=== PATIENT | male | born 1945 | race Caucasian/White ===

== ENCOUNTER 2017-07-19 23:28 | Observation (INO) ==
[2017-07-20] MEDS ORDERED: Naloxone 0.4 MG/ML INJ IVP PRN (01:35)
[2017-07-20] MEDS ORDERED: Ipratropium/Albuterol Neb 3 ML IH PRN (01:41)
--- NOTE | 2017-07-20 01:48 | Internal Med History&Physical ---
<Elke Figueroa H - Last Filed: 07/20/17 02:01> Date of Encounter: 07/20/17 Time of Encounter: 01:42 Internal Medicine - H&P: HPI Chief complaint: Shortness of breath/cough Admitted From: Emergency Dept Plans for Post Hospital Care: Home History of present illness: Mr. Ann is a 72 year old male with past medical history of CAD S/P4 stents, hypertension, and hyperlipidemia who presented to [place] [facility] earlier tonight after being sent there from urgent care. Per patient, he developed shortness of air and cough earlier this morning. He reports having some subjective chills and fever, an achy chest pain associated with cough, a productive cough with white sputum , and shortness of breath that is worsened with exertion. He initially went to urgent care at which time he was transferred to [place] [facility]. In [place] ED, patient was given a DuoNeb, after which his heart rate accelerated to the 140s. A repeat EKG demonstrated an irregularly irregular rhythm with no P waves indicative of atrial fibrillation. The patient was subsequently transferred to [facility] on 07/20/2017 for treatment of new onset atrial fibrillation and COPD exacerbation. During examination, patient states his shortness of breath has improved since transfer from [place]. His heart rate has improved, and he is no longer reporting chest pain. Patient denies any diaphoresis, nausea, vomiting, or lower extremity swelling,. He denies any abdominal pain, diarrhea, melena, or hematochezia. He denies orthopnea or past medical history of obstructive sleep apnea. He does however report intermittent chest palpitations over the past fews. He states he is not seeing a cardiovascular sonographer. He reports a previous myocardial infarctions and subsequent cardiac intervention resulting in 4 stents being placed. He denies any recent sick contacts or travel. Past Med Surg Social Fam HX - Past Medical History Attestation: Yes The following information was validated with the patient. Source: patient, old records reviewed Medical history: COPD, coronary artery disease, hyperlipidemia, hypertension, myocardial infarction Psychiatric history: no psych history - Past Surgical History Surgical History: angioplasty/stent - Social History Smoking Status: Current every day smoker Smokeless Tobacco Status: No Alcohol use: none Drug use: none Internal Medicine - H&P: Meds Aspirin [Ecotrin] 325 mg PO DAILY 07/19/17 [History] Atorvastatin [Lipitor] 40 mg PO HS 07/19/17 [History] Metoprolol Tartrate [Lopressor] 25 mg PO DAILY 07/19/17 [History] Tizanidine HCl [Zanaflex] 4 mg PO TID 07/19/17 [History] Tramadol HCl [Ultram] 50 mg PO BID PRN 07/19/17 [History] 3 Allergy/AdvReac Type Severity Reaction Status Date / Time Penicillins Allergy Anaphylaxis Verified 07/19/17 22:05 All Systems PM: A 10-system review of systems was performed and is negative for pertinent findings except as documented above in the HPI. - Constitutional Constitutional: chills, fever(s), no lethargy, no night sweats, no weakness - EENT Eyes: no change in vision, no loss of vision Nose, mouth and throat: nasal discharge, no facial pain, no nasal congestion, no sinus pain, no sinus pressure - Cardiovascular Cardiovascular ROS IM: chest pain, dyspnea, dyspnea on exertion, irregular heart rhythm, palpitations, no claudication, no diaphoresis, no edema, no lightheadedness, no orthopnea, no paroxysmal nocturnal dyspnea, no syncope - Respiratory Respiratory: cough, dyspnea, dyspnea on exertion, pain on inspiration, chest congestion, excessive phlegm production, pain with cough, no wheezing, no snoring - Gastrointestinal Gastrointestinal: no change in stool character, no coffee ground emesis, no diarrhea, no hematemesis, no loose stools, no melena, no nausea, no vomiting - Genitourinary Genitourinary ROS male: no difficulty urinating, no hematuria, no urinary incontinence, no urinary urgency - Integumentary Integumentary IM: no erythema, no skin ulcer - Neurological Neurological ROS: no abnormal movements, no abnormal speech, no focal weakness, no headache(s) - Endocrine Endocrine IM: no cold intolerance, no heat intolerance - Constitutional Vitals: Temp Pulse Resp BP Pulse Ox 98.3 F 80 18 90/65 96 07/20/17 00:48 07/20/17 00:48 07/20/17 00:48 07/20/17 00:48 07/20/17 00:48 General appearance: Present: cooperative, A&O X 3, no acute distress, answers questions appropriately - Head Head exam: Present: atraumatic, normocephalic Additional comments: adentulous - Eye Eye exam: Present: PERRL, conjuntiva pink, sclera anicteric Pupils: Present: PERRL - Neck Neck exam general surgery: Present: supple, trachea midline. Absent: lymphadenopathy - Respiratory Respiratory exam: Present: decreased breath sounds. Absent: accessory muscle use, rales, rhonchi, wheezes - Cardiovascular Cardiovascular exam: Present: RRR, +S1, +S2. Absent: diastolic murmur, gallop, rubs, systolic murmur - GI/Abdominal GI/Abdominal exam: Present: normal bowel sounds, soft, no peritoneal signs. Absent: distended, firm, guarding, tenderness - Extremities Exam Extremities exam: Present: warm, radial pulses palpable and symmetrical. Absent : calf tenderness, cyanotic, pedal edema - Neurological Exam Neurological exam: Present: CN II-XII intact, oriented X3, no focal deficits. Absent: pronater drift, facial droop, speech deficit - Skin Skin exam: Present: dry, intact - Assessment and plan (1) Atrial fibrillation with RVR Current Visit: No Status: Acute Assessment and plan: 72-year-old male with past medical history of CAD and HI presents with new onset atrial fibrillation with RVR. -Most recent echo in 2014 demonstrates LVEF 50-55%. -We will get echocardiogram in a.m. -TSH, magnesium, phosphorus. -Heart rate has normalized and blood pressure is borderline and 90/60. Will discontinue Cardizem drip. -Will increase home metoprolol dose of Lopressor 25 mg once daily to 25 mg twice a day. -CHADS- Vasc score of 2. -Will start on therapeutic lovenox BID. (2) COPD exacerbation Current Visit: No Status: Acute Assessment and plan: Patient received a dose of IV Solu-Medrol and his appetite ED prior to transfer. -We will get a respiratory infectious panel. -Continue duo nebs PRN. -We will provide antibiotic coverage with Levaquin. -PO prednisone. (3) CAD (coronary artery disease) Current Visit: Yes Status: Acute Assessment and plan: Will get updated echocardiogram in the morning. -Continue home medications. -Increase BB dose from 25mg QD to BID. Qualifiers: Coronary Disease-Associated Artery/Lesion type: [place] artery [place] vs. transplanted heart: [place] heart Associated angina: without angina Qualified Code(s): I25.10 - Atherosclerotic heart disease of [place] coronary artery without angina pectoris (4) DVT prophylaxis Current Visit: Yes Status: Acute Assessment and plan: Patient receiving 1 dose of therapeutic lovenox now. -EPCDS (5) Tobacco abuse Current Visit: Yes Status: Acute Assessment and plan: Patient declining nicotine replacement therapy. - Time Spent With Patient Total time spent is greater than 50% in coordination of care (as documented) at patient's floor/unit and/or counseling patient: <Ney Loredo T - Last Filed: 07/20/17 02:51> Date of Encounter: 07/20/17 Internal Medicine - H&P: HPI History of present illness: Mr. Ann is a 72 year old male All Systems PM: A 10-system review of systems was performed and is negative for pertinent findings except as documented above in the HPI. - Constitutional Vitals: Temp Pulse Resp BP Pulse Ox 98.3 F 80 18 90/65 96 07/20/17 00:48 07/20/17 00:48 07/20/17 00:48 07/20/17 00:48 07/20/17 00:48 Internal Med - H&P Results - Labs CBC & Chem 7: 07/20/17 01:54 07/20/17 01:54 Labs: Short CBC 07/20/17 Range/Units 01:54 WBC 10.3 (4.3-11.1) K/mcL Hgb 13.6 (12.9-16.9) g/dL Hct 39.4 (37.5-50.1) % Plt Count 252 (140-400) K/mcL Neutrophils # 9.8 H (1.6-8.9) K/mcL BMP 07/20/17 01:54 Sodium 136 Potassium 3.7 Chloride 104 Carbon Dioxide 21 L BUN 12 Creatinine 1.08 Glucose 151 H Calcium 9.1 Cardiac Enzymes 07/20/17 Range/Units 01:54 Troponin I 0.03 (< 0.04) ng/mL - Attending Attestation Seen and interviewed independently, with family members at the bedside EMR reviewed, diagnoses and plan of care discussed with the patient, family, and resident physician New diagnosis of Afib, now sinus HR controlled, asymptomatic and hemodynamically stable Details is as documented in her history and physical. - Assessment and plan (1) COPD exacerbation Current Visit: No Status: Acute (2) Atrial fibrillation with RVR Current Visit: No Status: Acute (3) CAD (coronary artery disease) Current Visit: Yes Status: Acute Qualifiers: Coronary Disease-Associated Artery/Lesion type: [place] artery [place] vs. transplanted heart: [place] heart Associated angina: without angina Qualified Code(s): I25.10 - Atherosclerotic heart disease of [place] coronary artery without angina pectoris (4) DVT prophylaxis Current Visit: Yes Status: Acute (5) Tobacco abuse Current Visit: Yes Status: Acute - Time Spent With Patient Total time spent is greater than 50% in coordination of care (as documented) at patient's floor/unit and/or counseling patient:
[2017-07-20 02:10] LABS: Basophils % 0.2 %; Hematocrit 39.4 % (37.5-50.1); Hemoglobin 13.6 g/dL (12.9-16.9); Immature Granulocytes % 0.6 % (0-4); Lymphocytes # 0.3 K/mcL (0.6-4.6); Lymphocytes % 3.3 %; Mean Corpuscular HGB Conc 34.5 g/dL (31.6-35.5); Mean Corpuscular Volume 95.6 fL (83.0-100.0); Mean Platelet Volume 9.8 fL (9.4-12.4); Monocytes # 0.1 K/mcL (0.0-1.3); Monocytes % 1.2 %; Neutrophils # 9.8 K/mcL (1.6-8.9); Platelet Count 252 K/mcL (140-400); Red Blood Count 4.12 M/mcL (4.19-5.50); Segmented Neutrophils % 94.7 %
[2017-07-20] MEDS ORDERED: *HR* Enoxaparin 60 MG/0.6 ML SYRINGE SQ SCH (02:15)
[2017-07-20 02:17] LABS: INR 1.2; Prothrombin Time 12.5 Seconds (9.4-12.1)
[2017-07-20 02:19] LABS: Activated Partial Thrombo Time 29.9 Seconds (26.0-36.0)
[2017-07-20 02:33] LABS: BUN/Creatinine Ratio 11 (6-26); Blood Urea Nitrogen 12 mg/dL (8-23); Calcium 9.1 mg/dL (8.6-10.3); Carbon Dioxide 21 mEq/L (23-29); Chloride 104 mEq/L (98-107); Glucose 151 mg/dL (70-105); Magnesium 1.7 mg/dL (1.6-2.6); Osmolality,Calculated 285 (280-300); Potassium 3.7 mEq/L (3.5-5.1); Sodium 136 mEq/L (136-145); eGFR For African Americans > 60 (> 60); eGFR For Non-African Americans > 60 (> 60)
[2017-07-20] MEDS ORDERED: Acetaminophen 325 MG TABLET PO ONE (02:53)
[2017-07-20 04:43] LABS: Adenovirus Not Detected (Not Detect); Bordetella Pertussis Not Detected (Not Detect); Chlamydophila pneumoniae Not Detected (Not Detect); Coronavirus 229E Not Detected (Not Detect); Coronavirus HKU1 Not Detected (Not Detect); Coronavirus NL63 Not Detected (Not Detect); Coronavirus OC43 Not Detected (Not Detect); Human Metapneumovirus ***DETECTED*** (Not Detect); Human Rhinovirus/Enterovirus ***DETECTED*** (Not Detect); Influenza A Subtype 2009 H1 Not Detected (Not Detect); Influenza A Untypeable Not Detected (Not Detect); Influenza B Not Detected (Not Detect); Mycoplasma pneumoniae Not Detected (Not Detect); Parainfluenza Virus 1 Not Detected (Not Detect); Parainfluenza Virus 2 Not Detected (Not Detect); Parainfluenza Virus 3 Not Detected (Not Detect); Parainfluenza Virus 4 Not Detected (Not Detect); Respiratory Syncytial Virus Not Detected (Not Detect)
[2017-07-20 06:18] LABS: Bilirubin,Urine Negative (Negative); Blood,Urine Negative (Negative); Clarity,Urine Clear (Clear); Color,Urine Yellow (Yellow); Glucose,Urine (UA) Normal (Normal); Ketones,Urine Trace mg/dL (Negative); Leukocyte Esterase,Urine Negative (Negative); Nitrite,Urine Negative (Negative); Protein,Urine Negative (Neg-Trace); Specific Gravity,Urine 1.017 (1.010-1.025); Urobilinogen,Urine Normal (Normal)
--- NOTE | 2017-07-20 07:54 | Internal Med Progress Note ---
Date of Encounter: 07/20/17 Time of Encounter: 07:54 - Assessment and plan (1) COPD exacerbation Current Visit: No Status: Acute Assessment and plan: Chronic smoker with h/o COPD denies supplementation or CPAP/BiPAP. -RIP positive for Human Metapneumovirus & Rhinovirus -On droplet precautions -CXR significant for hyperinflation, but no acute consolidations or abnormalities -Cont duonebs to q4hr PRN and add q2h PRN albuterol nebs -Cont Levaquin through 7 day course (today will be day 1) -PO prednisone through 5 day course (received Solu-Medrol yesterday); additional 4 days. (2) Atrial fibrillation with RVR Current Visit: No Status: Acute Assessment and plan: H/o CAD, [place], and stents x4; observed onset after albuterol treatment in [place]. Pt states has similar sensation a few times a year but states he ignores this when it happens. Most recent echo in 2014 demonstrates LVEF 50-55%. Was on Cardizem infusion and his rate has since normalized; currently normal HR and BP. Cardizem drip discontinued and patient's usual metoprolol increased to BID (25mg). -ECHO pending -TSH, magnesium, phosphorus ordered and normal except Phos of 2.0; will recheck PO4 in AM. -Cont metoprolol at 25mg BID for now and may change to 50mg XL on discharge -CHADS- Vasc score of 2. -Cont on therapeutic lovenox BID. (3) CAD (coronary artery disease) Current Visit: Yes Status: Acute Assessment and plan: H/o CAD with stents x4; last [place] several years ago; updated ECHO pending (last ECHO in 2014 with marginally decreased LVEF) -Continue home ASA and restart statin upon discharge -Cont BB at 25mg BID for now; likely discharge on long-acting 50mg Qualifiers: Coronary Disease-Associated Artery/Lesion type: [place] artery [place] vs. transplanted heart: [place] heart Associated angina: without angina Qualified Code(s): I25.10 - Atherosclerotic heart disease of [place] coronary artery without angina pectoris (4) Tobacco abuse Current Visit: Yes Status: Acute Assessment and plan: Patient declining nicotine replacement therapy; anxious for d/c. Counseled cessation. (5) DVT prophylaxis Current Visit: Yes Status: Acute Assessment and plan: Therapeutic Lovenox for AF-RVR -EPCDS - Time Spent With Patient Total time spent is greater than 50% in coordination of care (as documented) at patient's floor/unit and/or counseling patient: - Subjective Interval history: Pt states feels much better this AM and is eager to be discharged. O2 saturations at rest are in the low 90s. Denies use of supplementary O2 at home or any positive pressure ventilation. Interim work-up did reveal human metapneumovirus and rhinovirus. No fevers overnight. Rate and BP have been stable throughout this hospitalization. ECHO is pending. Pt is amenable to staying pending ECHO results. States he will leave AMA if serious consideration is not granted towards discharging tomorrow at the latest. Lives at home alone. - Constitutional Vitals: Temp Pulse Resp BP Pulse Ox 98.2 F 76 18 103/62 95 07/20/17 06:39 07/20/17 06:39 07/20/17 06:39 07/20/17 06:39 07/20/17 06:39 CONSTITUTIONAL: Alert and oriented X3, well-nourished, well appearing, in no apparent distress EYES: PER, no scleral icterus, no drainage, no conjunctival injection NOSE: The nose is normal in appearance without rhinorrhea; no cannula in place Oropharynx: pink/moist RESP: SpO2 91-93% on RA at rest, no apparent distress or use of accessory muscles, CTA b/l with no wheezes/rales/rhonchi, sounds diminished over RLL CARD: Regular rhythm, without murmurs, rubs, or gallops ABD: grossly normal, soft, non-tender, no guarding/distention/rigidity SKIN: normal appearance, no pallor/diaphoresis,mottling,jaundice,cyanosis EXT: Rad pulses 2+ and symmetrical; no lateralizing edema or skin color changes to b/l LE PSYCH: appropriate mood/affect General appearance: Present: cooperative, A&O X 3, no acute distress, answers questions appropriately Internal Medicine: Result - Labs CBC & Chem 7: 07/20/17 01:54 07/20/17 01:54 Labs: Short CBC 07/20/17 Range/Units 01:54 WBC 10.3 (4.3-11.1) K/mcL Hgb 13.6 (12.9-16.9) g/dL Hct 39.4 (37.5-50.1) % Plt Count 252 (140-400) K/mcL Neutrophils # 9.8 H (1.6-8.9) K/mcL BMP 07/20/17 01:54 Sodium 136 Potassium 3.7 Chloride 104 Carbon Dioxide 21 L BUN 12 Creatinine 1.08 Glucose 151 H Calcium 9.1 Cardiac Enzymes 07/20/17 Range/Units 01:54 Troponin I 0.03 (< 0.04) ng/mL Urine 07/20/17 Range/Units 06:06 Urine Color Yellow (Yellow) Urine Clarity Clear (Clear) Urine pH 6.0 (5.0-8.0) pH Units Ur Specific [place] 1.017 (1.010-1.025) Urine Protein Negative (Neg-Trace) mg/dL Urine Glucose (UA) Normal (Normal) mg/dL - ABG Interpretation ABG results: PT/INR, D-dimer PT 12.5 Seconds (9.4-12.1) H 07/20/17 01:54 Consult Discharge Plan - Plan Referrals: Mar Umana, ACCOUNT EXECUTIVE SALES REPRESENTATIVE [Primary Care Provider] -
[2017-07-20] MEDS ORDERED: Albuterol 2.5 MG/3 ML NEBULIZER IH PRN (08:40)
[2017-07-20] MEDS ORDERED: predniSONE 20 MG TABLET PO SCH (09:00)
[2017-07-20] MEDS ORDERED: Levofloxacin 500 MG/100 ML 500 MG/100 ML BAG IVPB SCH (09:00)
[2017-07-20] MEDS ORDERED: traMADol 50 MG TABLET PO PRN (09:43)
[2017-07-20] MEDS ORDERED: Azithromycin 250 MG TABLET PO ONE (13:07)
--- NOTE | 2017-07-20 14:10 | Discharge Summary ---
<Hank Copeland - Last Filed: 07/20/17 15:08> - NOTES TO OUTPATIENT PROVIDER Notes to Outpatient Provider: Admitted for acute exacerbation of COPD and developed a film with RVR an early point during the course at [facility] ER. Required Cardizem drip to regain control, however, changing patients metoprolol to 12.5 mg succinate formulation as well as sending patient home on Coumadin. Patient was also positive for human meta-numerous and will be sent home on prednisone taper over 12 day period. Orders not resulted at time of discharge: Pending orders 07/20/17 01:38 EV echocardiogram Routine 07/21/17 04:00 Basic Metabolic Panel AM 0400 Complete Blood Count [HEME] AM 0400 Phosphorous AM 0400 07/22/17 04:00 Basic Metabolic Panel AM 0400 Complete Blood Count [HEME] AM 0400 Date of Encounter: 07/20/17 Time of Encounter: 07:54 - Discharge Diagnosis (1) COPD exacerbation Priority: Primary Status: Acute Assessment and Plan: Discharging with Prednisone taper and continuation of Azithromycin; was positive for human metapneumovirus & rhinovirus (2) Atrial fibrillation with RVR Priority: Primary Status: Resolved Assessment and Plan: Converted with cardizem. Stable on Metoprolol XL. Likely paroxysmal. Discharging on Metoprolol Succinate 12.5mg daily & Coumadin; to follow up in coag clinic. (3) CAD (coronary artery disease) Priority: Secondary Status: Chronic Assessment and Plan: H/o CAD with stents x4; last DC several years ago; updated ECHO pending (last ECHO in 2014 with marginally decreased LVEF) -Continue home ASA and restart statin upon discharge Qualifiers: Coronary Disease-Associated Artery/Lesion type: [place] artery [place] vs. transplanted heart: [place] heart Associated angina: without angina Qualified Code(s): I25.10 - Atherosclerotic heart disease of [place] coronary artery without angina pectoris (4) Tobacco abuse Priority: Secondary Status: Chronic Assessment and Plan: Patient declining nicotine replacement therapy; anxious for d/c. Counseled cessation. Hospital course: Mr. Ann is a 72 year old male with history of COPD admitted with subjective respiratory decompensation. Initially treated at [facility] for AECOPD during which time he developed A-fib RVR and was started on Cardizem drip prior to transfer to [facility]. AF-RVR resolved and patient transitioned to metoprolol ( Succinate 12.5mg daily) and coumadin (3mg daily). Also, respiratory infection panel revealed human metapneumovirus and rhinovirus as likely precipitants of AECOPD. Started on IV Levaquin, but reacted with local itching and redness at infusion site. Changed to Zithromax and will continue upon discharge. Also, discharging on prednisone taper given history and presence of HMP Virus. ECHO completed prior to discharge with interpretation pending. Stable on date of discharge, saturating well on room air with no apparent respiratory distress. Pt is agreeable to plan points and understands that he needs INR checked on and PCP appt by Thursday this week. Discharge discussed with: patient, family - Time Spent with Patient Total time spent providing and/or coordinating discharge services: - Discharge Medications Prescriptions: Azithromycin [Zithromax] 250 mg PO DAILY 4 Days #4 tablet Metoprolol XL (24 HR) Succ [Toprol Xl] 12.5 mg PO DAILY 30 Days #15 tab.er.24h predniSONE [PredniSONE] See Taper PO DAILY #15 tablet Warfarin [Coumadin] 3 mg PO DAILY 30 Days #30 tablet Home Medications: Aspirin [Ecotrin] 325 mg PO DAILY 07/19/17 [History] Atorvastatin [Lipitor] 40 mg PO HS 07/19/17 [History] Tizanidine HCl [Zanaflex] 4 mg PO TID 07/19/17 [History] Tramadol HCl [Ultram] 50 mg PO BID PRN 07/19/17 [History] Azithromycin [Zithromax] 250 mg PO DAILY 4 Days #4 tablet 07/20/17 [Rx] Metoprolol XL (24 HR) Succ [Toprol Xl] 12.5 mg PO DAILY 30 Days #15 tab.er.24h 07/20/17 [Rx] Warfarin [Coumadin] 3 mg PO DAILY 30 Days #30 tablet 07/20/17 [Rx] predniSONE [PredniSONE] See Taper PO DAILY #15 tablet 07/20/17 [Rx] Allergies/Adverse Reactions: 3 Allergy/AdvReac Type Severity Reaction Status Date / Time levofloxacin [From Levaquin] Allergy Itching Verified 07/20/17 10:10 Penicillins Allergy Anaphylaxis Verified 07/19/17 22:05 Date of admission: 07/20/17 00:45 Primary care physician: Mar Umana Discharging clinician: Hank Copeland Anticipated date of discharge: 07/20/17 - Constitutional Vitals: Temp Pulse Resp BP Pulse Ox 98.2 F 64 15 106/94 95 07/20/17 06:39 07/20/17 11:45 07/20/17 11:45 07/20/17 11:45 07/20/17 11:45 CONSTITUTIONAL: Alert and oriented X3, well-nourished, well appearing, in no apparent distress EYES: PER, no scleral icterus, no drainage, no conjunctival injection NOSE: The nose is normal in appearance without rhinorrhea; no cannula in place Oropharynx: pink/moist RESP: SpO2 91-93% on RA at rest, no apparent distress or use of accessory muscles, CTA b/l with no wheezes/rales/rhonchi, sounds diminished over RLL CARD: Regular rhythm, without murmurs, rubs, or gallops ABD: grossly normal, soft, non-tender, no guarding/distention/rigidity SKIN: normal appearance, no pallor/diaphoresis,mottling,jaundice,cyanosis EXT: Rad pulses 2+ and symmetrical; no lateralizing edema or skin color changes to b/l LE PSYCH: appropriate mood/affect General appearance: Present: cooperative, A&O X 3, no acute distress, answers questions appropriately - Patient Status Disposition: Home, Self-Care Condition: Good Functional capacity at discharge: independent ambulation Overall status at discharge: patient is back to baseline - Ambulatory Orders Ambulatory Orders: Prothrombin Time INR [COAG] Time Frame: 3 Days, Facility: [facility], Location: Lab - Discharge Instructions Instructions: Warfarin (By mouth), Atrial Fibrillation (DC), Chronic Obstructive Pulmonary Disease (DC) Follow Up With: Mar Umana, ELIZABETH [Primary Care Provider] - (Needs appt this week.) Additional Instructions: Please call your PCP or return to the ED if you have any new or recurrent symptoms including, but not limited to: dizziness, chest pain, abnormal heart beat, shortness of breath, worse cough, increased sputum production, nausea, vomiting, or leg swelling. - Diet and Activity Activity: resume usual activities as tolerated Diet: advance to your usual diet <Moisés Morejon H - Last Filed: 07/20/17 15:31> Orders not resulted at time of discharge: Pending orders 07/21/17 04:00 Basic Metabolic Panel AM 0400 Complete Blood Count [HEME] AM 0400 Phosphorous AM 0400 07/22/17 04:00 Basic Metabolic Panel AM 0400 Complete Blood Count [HEME] AM 0400 Date of Encounter: 07/20/17 - Discharge Diagnosis (1) COPD exacerbation Status: Acute (2) Atrial fibrillation with RVR Status: Resolved (3) CAD (coronary artery disease) Status: Chronic Qualifiers: Coronary Disease-Associated Artery/Lesion type: [place] artery [place] vs. transplanted heart: [place] heart Associated angina: without angina Qualified Code(s): I25.10 - Atherosclerotic heart disease of [place] coronary artery without angina pectoris (4) Tobacco abuse Status: Chronic Hospital course: Mr. Ann is a 72 year old male - Time Spent with Patient Total time spent providing and/or coordinating discharge services: Date of admission: 07/20/17 00:45 Primary care physician: aMr Umana - Constitutional Vitals: Temp Pulse Resp BP Pulse Ox 97.9 F 81 16 130/69 95 07/20/17 15:00 07/20/17 15:00 07/20/17 15:00 07/20/17 15:00 07/20/17 11:45 - Attending Attestation Robert yeboah RVR secondary to/triggered by acute COPD exacerbation due to viral bronchitis with MetaPneumovirus and enterovirus/rhinovirus Complete prednisone taper Anticoagulants were discussed, risks were explained, the patient prefers to be on Coumadin Follow-up with primary care physician within the next 7 days. Follow-up with cardiology within the next 2 weeks Complete doses of azithromycin Quit smoking Time spent 40 minutes Patient was given the option to stay an additional day but he prefers to go home as he feels much better I examined this patient and my medical decision-making was reviewed with the Resident Physician. I agree with the documented findings, disposition and treatment plan as described except to the extent set forth below.
[2017-07-20] MEDS ORDERED: *HR* Warfarin 3 MG TABLET PO ONE (14:35)
[2017-07-20] MEDS ORDERED: tiZANidine 4 MG TABLET PO SCH (15:00)
[2017-07-20 15:28] VITALS: BP 130/69
[2017-07-21] MEDS ORDERED: Aspirin Enteric Coated 325 MG Tablet PO SCH (09:00)
[2017-07-21] MEDS ORDERED: Azithromycin 250 MG TABLET PO SCH (09:00)
[2017-07-21] MEDS ORDERED: Metoprolol XL (24 HR) Succ 25 MG TAB.ER.24H PO SCH (09:00)
== END 2017-07-20 17:24 | disposition home or self-care (01) ==
LOC: 2NENU
PROVIDERS: ADMIT Internal Medicine Cardiovascular Disease; ATTEND Internal Medicine Cardiovascular Disease

== ENCOUNTER 2018-10-11 11:13 | Observation (INO) ==
[2018-10-11] MEDS ORDERED: Ipratropium/Albuterol Neb 3 ML IH ONE (11:38)
[2018-10-11 12:35] LABS: BUN/Creatinine Ratio 21 (6-26); Blood Urea Nitrogen 21 mg/dL (8-23); Calcium 8.4 mg/dL (8.6-10.3); Carbon Dioxide 26 mEq/L (23-29); Chloride 104 mEq/L (98-107); Glucose 93 mg/dL (70-105); Osmolality,Calculated 287 (280-300); Potassium 3.3 mEq/L (3.5-5.1); Sodium 137 mEq/L (136-145); eGFR For African Americans > 60 (> 60); eGFR For Non-African Americans > 60 (> 60)
[2018-10-11 13:01] LABS: Basophils % 0.1 %; Eosinophils % 0.2 %; Hematocrit 38.5 % (37.5-50.1); Hemoglobin 12.7 g/dL (12.9-16.9); Immature Granulocytes % 0.5 % (0-4); Lymphocytes # 1.1 K/mcL (0.6-4.6); Mean Corpuscular Hemoglobin 33.1 pg (28.0-33.3); Mean Corpuscular Volume 100.3 fL (83.0-100.0); Mean Platelet Volume 9.8 fL (9.4-12.4); Monocytes # 1.3 K/mcL (0.0-1.3); Monocytes % 7.1 %; Neutrophils # 15.5 K/mcL (1.6-8.9); Platelet Count 361 K/mcL (140-400); Red Blood Count 3.84 M/mcL (4.19-5.50); Red Cell Distribution Width 12.8 % (11.5-14.5); Segmented Neutrophils % 86.1 %
[2018-10-11 13:09] LABS: INR 8.2
[2018-10-11] MEDS ORDERED: Azithromycin 500 MG in D5% in Water 250 ML IVPB ONE (13:42)
[2018-10-11] MEDS ORDERED: *HR* Nalbuphine 10 MG/ML AMPUL IV STA (13:42)
[2018-10-11] MEDS ORDERED: cefTRIAXone 1,000 MG in 0.9 % Sodium Chloride Mini Bag 100 ML IVPB ONE (13:45)
[2018-10-11] MEDS ORDERED: methylPREDNISolone 125 MG/2 ML VIAL IVP ONE (14:15)
[2018-10-11] MEDS ORDERED: cefTRIAXone 1,000 MG in Water for inj. (sterile) 10 ML IVP ONE (14:15)
[2018-10-11] MEDS ORDERED: Naloxone 0.4 MG/ML INJ IVP PRN (14:40)
[2018-10-11] MEDS ORDERED: *HR* Promethazine 25 MG/ML VIAL IVP PRN (14:40)
[2018-10-11] MEDS ORDERED: Ondansetron ODT 4 MG TAB.RAPDIS SL PRN (14:40)
[2018-10-11] MEDS ORDERED: *HR* OxyCODONE Immed Rel 5 MG TABLET PO PRN (14:40)
[2018-10-11] MEDS ORDERED: Albuterol 2.5 MG/3 ML NEBULIZER IH PRN (14:44)
[2018-10-11 15:19] LABS: Troponin I < 0.03 ng/mL (< 0.04)
[2018-10-11] MEDS: Ipratropium/Albuterol Neb 3 ML IH SCH ×2 (15:37→23:10)
[2018-10-11] MEDS ORDERED: *HR* Phytonadione 5 MG TABLET PO ONE ×2 (15:51→20:00)
[2018-10-11] MEDS: Acetaminophen 325 MG TABLET PO PRN (20:10)
[2018-10-12] MEDS: Ipratropium/Albuterol Neb 3 ML IH SCH ×4 (04:23→21:53)
[2018-10-12 07:29] LABS: Basophils % 0.1 %; Hematocrit 36.1 % (37.5-50.1); Hemoglobin 12.1 g/dL (12.9-16.9); Immature Granulocytes % 0.7 % (0-4); Lymphocytes # 0.4 K/mcL (0.6-4.6); Lymphocytes % 2.1 %; Mean Corpuscular HGB Conc 33.5 g/dL (31.6-35.5); Mean Corpuscular Hemoglobin 33.1 pg (28.0-33.3); Mean Corpuscular Volume 98.6 fL (83.0-100.0); Mean Platelet Volume 9.5 fL (9.4-12.4); Monocytes # 0.8 K/mcL (0.0-1.3); Monocytes % 4.5 %; Neutrophils # 15.7 K/mcL (1.6-8.9); Platelet Count 364 K/mcL (140-400); Red Blood Count 3.66 M/mcL (4.19-5.50); Red Cell Distribution Width 12.6 % (11.5-14.5); Segmented Neutrophils % 92.6 %
[2018-10-12 07:47] LABS: BUN/Creatinine Ratio 19 (6-26); Blood Urea Nitrogen 19 mg/dL (8-23); Calcium 8.7 mg/dL (8.6-10.3); Carbon Dioxide 29 mEq/L (23-29); Chloride 101 mEq/L (98-107); Glucose 138 mg/dL (70-105); Osmolality,Calculated 294 (280-300); Sodium 140 mEq/L (136-145); eGFR For African Americans > 60 (> 60); eGFR For Non-African Americans > 60 (> 60)
[2018-10-12 08:03] LABS: INR 3.3; Prothrombin Time 37.1 Seconds (9.4-12.1)
[2018-10-12] MEDS: PrednisoLONE Oral Soln 15 MG/5 ML UDC PO SCH (08:23)
[2018-10-12] MEDS: Metoprolol XL (24 HR) Succ 25 MG TAB.ER.24H PO SCH (08:23)
[2018-10-12] MEDS: *HR* Digoxin 0.125 MG TABLET PO SCH (08:23)
[2018-10-12] MEDS: Azithromycin 500 MG in D5% in Water 250 ML IVPB SCH (08:23)
[2018-10-12] MEDS: Acetaminophen 325 MG TABLET PO PRN ×2 (11:40→19:28)
[2018-10-12] MEDS ORDERED: cefTRIAXone 2,000 MG in Water for inj. (sterile) 20 ML IVP SCH (14:00)
[2018-10-12] MEDS ORDERED: *HR* LORazepam 2 MG/ML VIAL IVP ONE (21:21)
[2018-10-13] MEDS: Ipratropium/Albuterol Neb 3 ML IH SCH ×2 (03:53→11:13)
[2018-10-13 06:34] LABS: Basophils % 0.1 %; Eosinophils % 0.1 %; Hematocrit 34.6 % (37.5-50.1); Hemoglobin 11.4 g/dL (12.9-16.9); Immature Granulocytes % 0.7 % (0-4); Lymphocytes # 1.3 K/mcL (0.6-4.6); Lymphocytes % 6.9 %; Mean Corpuscular HGB Conc 32.9 g/dL (31.6-35.5); Mean Corpuscular Hemoglobin 32.2 pg (28.0-33.3); Mean Corpuscular Volume 97.7 fL (83.0-100.0); Mean Platelet Volume 9.7 fL (9.4-12.4); Monocytes # 0.9 K/mcL (0.0-1.3); Monocytes % 5.2 %; Neutrophils # 15.9 K/mcL (1.6-8.9); Platelet Count 344 K/mcL (140-400); Red Blood Count 3.54 M/mcL (4.19-5.50); Red Cell Distribution Width 12.7 % (11.5-14.5); White Blood Count 18.2 K/mcL (4.3-11.1)
[2018-10-13 06:52] LABS: INR 1.5; Prothrombin Time 17.3 Seconds (9.4-12.1)
[2018-10-13 06:58] LABS: BUN/Creatinine Ratio 18 (6-26); Blood Urea Nitrogen 19 mg/dL (8-23); Calcium 8.6 mg/dL (8.6-10.3); Carbon Dioxide 26 mEq/L (23-29); Chloride 103 mEq/L (98-107); Glucose 176 mg/dL (70-105); Osmolality,Calculated 297 (280-300); Potassium 3.4 mEq/L (3.5-5.1); Sodium 140 mEq/L (136-145); eGFR For African Americans > 60 (> 60); eGFR For Non-African Americans > 60 (> 60)
[2018-10-13 07:08] VITALS: BP 119/65
[2018-10-13] MEDS: *HR* Digoxin 0.125 MG TABLET PO SCH (08:06)
[2018-10-13] MEDS: Metoprolol XL (24 HR) Succ 25 MG TAB.ER.24H PO SCH (08:06)
[2018-10-13] MEDS: PrednisoLONE Oral Soln 15 MG/5 ML UDC PO SCH (08:06)
[2018-10-13] MEDS: Azithromycin 500 MG in D5% in Water 250 ML IVPB SCH (08:06)
[2018-10-13] MEDS ORDERED: Azithromycin 250 MG TABLET PO SCH (09:00)
== END 2018-10-13 12:20 | disposition home or self-care (01) ==
LOC: SUATTDRO → 3BNU 11:13 → EMEROOARM 11:13 → SUATTDRO 17:12 → 3BNU 18:38
PROVIDERS: ADMIT Internal Medicine; ATTEND Internal Medicine

== ENCOUNTER 2020-08-02 13:13 | Observation (INO) ==
[2020-08-02 13:41] LABS: Basophils # 0.1 K/mcL (0.0-0.2); Basophils % 0.4 %; Eosinophils % 0.1 %; Hematocrit 40.4 % (37.5-50.1); Hemoglobin 13.3 g/dL (12.9-16.9); Immature Granulocytes % 0.6 % (0-4); Lymphocytes # 0.6 K/mcL (0.6-4.6); Mean Corpuscular HGB Conc 32.9 g/dL (31.6-35.5); Mean Corpuscular Volume 100.2 fL (83.0-100.0); Mean Platelet Volume 9.4 fL (9.4-12.4); Monocytes % 5.1 %; Neutrophils # 17.9 K/mcL (1.6-8.9); Platelet Count 425 K/mcL (140-400); Red Blood Count 4.03 M/mcL (4.19-5.50); Segmented Neutrophils % 90.8 %; White Blood Count 19.7 K/mcL (4.3-11.1)
[2020-08-02 14:11] LABS: Troponin I 0.19 ng/mL (< 0.04)
[2020-08-02 14:19] LABS: BUN/Creatinine Ratio 11 (6-26); Blood Urea Nitrogen 14 mg/dL (8-23); Carbon Dioxide 23 mEq/L (23-29); Chloride 101 mEq/L (98-107); Glucose 105 mg/dL (70-105); Osmolality,Calculated 281 (280-300); Potassium 3.9 mEq/L (3.5-5.1); Sodium 135 mEq/L (136-145); eGFR For African Americans > 60 (> 60); eGFR For Non-African Americans 58 (> 60)
[2020-08-02] MEDS ORDERED: Ipratropium/Albuterol Neb 3 ML IH ONE (14:24)
[2020-08-02] MEDS ORDERED: Azithromycin 500 MG in D5% in Water 250 ML IVPB ONE (15:14)
[2020-08-02] MEDS ORDERED: cefTRIAXone 1,000 MG in Water for inj. (sterile) 10 ML IVP ONE (15:14)
[2020-08-02] MEDS ORDERED: Acetaminophen 325 MG TABLET PO ONE (15:22)
[2020-08-02] MEDS ORDERED: Naloxone 0.4 MG/ML INJ IVP PRN (15:24)
[2020-08-02] MEDS ORDERED: Aspirin 325 MG TABLET PO ONE (15:38)
[2020-08-02] MEDS ORDERED: Aspirin 81 MG TAB.CHEW PO ONE (16:00)
[2020-08-02] MEDS: Ipratropium/Albuterol Neb 3 ML IH SCH ×3 (16:11→23:18)
[2020-08-02 16:24] LABS: INR 3.9; Prothrombin Time 42.9 Seconds (9.4-12.1)
[2020-08-02] MEDS: MethylPREDNISolone 40 MG/ML VIAL IVP SCH (17:29)
[2020-08-03] MEDS: MethylPREDNISolone 40 MG/ML VIAL IVP SCH ×2 (00:15→09:13)
[2020-08-03] MEDS: Ipratropium/Albuterol Neb 3 ML IH SCH ×6 (03:52→23:36)
[2020-08-03 05:26] LABS: Basophils % 0.1 %; Hematocrit 35.3 % (37.5-50.1); Immature Granulocytes % 0.5 % (0-4); Lymphocytes # 0.3 K/mcL (0.6-4.6); Lymphocytes % 2.1 %; Mean Corpuscular Hemoglobin 33.5 pg (28.0-33.3); Mean Corpuscular Volume 98.6 fL (83.0-100.0); Mean Platelet Volume 9.9 fL (9.4-12.4); Monocytes # 0.1 K/mcL (0.0-1.3); Neutrophils # 13.7 K/mcL (1.6-8.9); Platelet Count 344 K/mcL (140-400); Red Blood Count 3.58 M/mcL (4.19-5.50); Segmented Neutrophils % 96.3 %; White Blood Count 14.2 K/mcL (4.3-11.1)
[2020-08-03 05:43] LABS: BUN/Creatinine Ratio 16 (6-26); Blood Urea Nitrogen 17 mg/dL (8-23); Calcium 8.8 mg/dL (8.6-10.3); Carbon Dioxide 22 mEq/L (23-29); Chloride 101 mEq/L (98-107); Glucose 187 mg/dL (70-105); Osmolality,Calculated 282 (280-300); Potassium 3.9 mEq/L (3.5-5.1); Sodium 133 mEq/L (136-145); eGFR For African Americans > 60 (> 60); eGFR For Non-African Americans > 60 (> 60)
[2020-08-03] MEDS: Budesonide/Formoterol 160/4.5 1 PUFF INH IH SCH ×2 (07:31→19:09)
[2020-08-03 08:23] LABS: INR 3.6; Prothrombin Time 39.8 Seconds (9.4-12.1)
[2020-08-03] MEDS ORDERED: Perflutren Lipid Microsphere 1.3 ML in 0.9 % Sodium Chloride 8.7 ML IVP PRN (08:25)
[2020-08-03] MEDS: cefTRIAXone 1,000 MG in Water for inj. (sterile) 10 ML IVP SCH (09:13)
[2020-08-03] MEDS: Aspirin Enteric Coated 325 MG Tablet PO SCH (09:13)
[2020-08-03] MEDS ORDERED: tiZANidine 4 MG TABLET PO PRN (13:08)
[2020-08-03] MEDS: *HR* Digoxin 0.125 MG TABLET PO SCH (14:47)
[2020-08-03] MEDS ORDERED: Azithromycin 250 MG TABLET PO SCH (16:00)
[2020-08-03] MEDS ORDERED: Warfarin perPT PO PRN (18:00)
[2020-08-03] MEDS ORDERED: MethylPREDNISolone 40 MG/ML VIAL IVP SCH (18:00)
[2020-08-04 02:24] LABS: Basophils % 0.1 %; Hemoglobin 11.2 g/dL (12.9-16.9); Immature Granulocytes % 0.9 % (0-4); Lymphocytes # 0.3 K/mcL (0.6-4.6); Lymphocytes % 1.3 %; Mean Corpuscular HGB Conc 33.9 g/dL (31.6-35.5); Mean Corpuscular Hemoglobin 33.5 pg (28.0-33.3); Mean Corpuscular Volume 98.8 fL (83.0-100.0); Mean Platelet Volume 10.1 fL (9.4-12.4); Monocytes # 0.7 K/mcL (0.0-1.3); Neutrophils # 23.1 K/mcL (1.6-8.9); Platelet Count 407 K/mcL (140-400); Red Blood Count 3.34 M/mcL (4.19-5.50); Red Cell Distribution Width 12.2 % (11.5-14.5); Segmented Neutrophils % 94.7 %; White Blood Count 24.4 K/mcL (4.3-11.1)
[2020-08-04 02:32] LABS: Prothrombin Time 33.6 Seconds (9.4-12.1)
[2020-08-04 02:43] LABS: BUN/Creatinine Ratio 24 (6-26); Blood Urea Nitrogen 29 mg/dL (8-23); Calcium 8.7 mg/dL (8.6-10.3); Carbon Dioxide 24 mEq/L (23-29); Chloride 101 mEq/L (98-107); Glucose 217 mg/dL (70-105); Osmolality,Calculated 288 (280-300); Potassium 4.1 mEq/L (3.5-5.1); Sodium 133 mEq/L (136-145); eGFR For African Americans > 60 (> 60); eGFR For Non-African Americans 59 (> 60)
[2020-08-04] MEDS: Ipratropium/Albuterol Neb 3 ML IH SCH ×3 (03:22→11:12)
[2020-08-04] MEDS: Budesonide/Formoterol 160/4.5 1 PUFF INH IH SCH (07:36)
[2020-08-04] MEDS: Aspirin Enteric Coated 325 MG Tablet PO SCH (08:21)
[2020-08-04] MEDS: *HR* Digoxin 0.125 MG TABLET PO SCH (08:21)
[2020-08-04] MEDS ORDERED: predniSONE 20 MG TABLET PO SCH (09:00)
[2020-08-04] MEDS: cefTRIAXone 1,000 MG in Water for inj. (sterile) 10 ML IVP SCH (11:27)
[2020-08-04] MEDS ORDERED: Cefdinir 300 MG CAPSULE PO SCH (11:30)
[2020-08-04 11:53] VITALS: BP 112/59
[2020-08-04] MEDS ORDERED: Azithromycin 250 MG TABLET PO SCH (16:00)
[2020-08-04] MEDS ORDERED: *HR* Warfarin 2.5 MG TABLET PO ONE (18:00)
== END 2020-08-04 13:35 | disposition home or self-care (01) ==
LOC: 2ANU 13:13 → EMEROOARM 13:13 → SUATTDRO 15:43 → 2ANU 17:28
PROVIDERS: ADMIT Student in an Organized Health Care Education/Training Program; ATTEND General Practice